=== PATIENT | male | born 2005 | race Two or more races ===

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

== ENCOUNTER 2023-03-10 16:58 | Emergency (ER) | payer OTHER ==
[~2023-03-10] VITALS: Ht 165.1 cm; Wt 57.6 kg
[2023-03-10 20:10] LABS: HEMOGLOBIN 13.9 g/dL (13-16.00); MEAN CELL VOLUME 86.7 fL (80.0-100.00); MEAN CORPUSCULAR HEMOGLOBIN 29.4 pg (27.00-32.0); MEAN CORPUSCULAR HGB CONC 33.9 g/dl (32.0-36.0); RED BLOOD COUNT 4.73 M/uL (4.00-6.00); RED CELL DISTRIBUTION WIDTH 13.4 % (11.5-14.5)
[2023-03-10 20:20] LABS: PLATELET COUNT 70 K/uL (150-450)
== END 2023-03-10 21:06 | disposition home or self-care (01) ==
LOC: EMR PED → ER 16:59 → EMR PED 16:59 → EDBD 16:59 → EMR PED 18:47
PROVIDERS: Emergency Medicine
DX: R50.9 Fever, unspecified (principal); Z20.822 Contact with and (suspected) exposure to COVID-19

== ENCOUNTER 2023-03-11 14:12 | Inpatient (IN) | payer OTHER ==
[~2023-03-11] VITALS: Ht 165.1 cm; Wt 58.2 kg
[2023-03-11 16:43] LABS: HEMATOCRIT 41.6 % (39.0-48.0); HEMOGLOBIN 14.1 g/dL (13-16.00); MEAN CELL VOLUME 87.6 fL (80.0-100.00); MEAN CORPUSCULAR HEMOGLOBIN 29.6 pg (27.00-32.0); MEAN CORPUSCULAR HGB CONC 33.8 g/dl (32.0-36.0); RED BLOOD COUNT 4.75 M/uL (4.00-6.00); RED CELL DISTRIBUTION WIDTH 13.6 % (11.5-14.5)
[2023-03-11 16:44] LABS: PLATELET COUNT 85 K/uL (150-450)
[2023-03-11 16:54] LABS: ALBUMIN 3.7 gm/dL (3.4-5.0); BILIRUBIN TOTAL 0.35 mg/dL (0.3-1.2); CALCIUM 8.6 mg/dL (8.5-10.1); CREATININE SERUM 0.76 mg/dL (0.70-1.30); GFR 132.13; GLOBULINA 3.4 G/DL (2.4-3.5); POTASSIUM 3.94 mEq/L (3.5-5.1); TOTAL PROTEIN 7.1 gm/dL (6.4-8.2)
[2023-03-11 20:46] LABS: INR 1.33; PROTHROMBIN TIME 13.7 SECONDS (9.0-11.5)
[2023-03-11 20:57] LABS: PARTIAL THROMBOPLASTIN TIME 38.5 SECONDS (22.0-34.0)
[2023-03-12 05:30] LABS: HEMATOCRIT 39.7 % (39.0-48.0); HEMOGLOBIN 13.4 g/dL (13-16.00); MEAN CELL VOLUME 87.2 fL (80.0-100.00); MEAN CORPUSCULAR HEMOGLOBIN 29.4 pg (27.00-32.0); MEAN CORPUSCULAR HGB CONC 33.7 g/dl (32.0-36.0); RED BLOOD COUNT 4.55 M/uL (4.00-6.00); RED CELL DISTRIBUTION WIDTH 13.2 % (11.5-14.5)
[2023-03-12 05:43] LABS: ALBUMIN 3.2 gm/dL (3.4-5.0); BILIRUBIN TOTAL 0.25 mg/dL (0.3-1.2); CALCIUM 7.9 mg/dL (8.5-10.1); CREATININE SERUM 0.73 mg/dL (0.70-1.30); GFR 138.41; GLOBULINA 2.4 G/DL (2.4-3.5); POTASSIUM 3.75 mEq/L (3.5-5.1); TOTAL PROTEIN 5.6 gm/dL (6.4-8.2)
[2023-03-12 06:07] LABS: PLATELET COUNT 58 K/uL (150-450)
[2023-03-13 07:04] LABS: HEMATOCRIT 43.4 % (39.0-48.0); MEAN CELL VOLUME 86.2 fL (80.0-100.00); MEAN CORPUSCULAR HEMOGLOBIN 29.9 pg (27.00-32.0); MEAN CORPUSCULAR HGB CONC 34.7 g/dl (32.0-36.0); RED BLOOD COUNT 5.03 M/uL (4.00-6.00); RED CELL DISTRIBUTION WIDTH 13.3 % (11.5-14.5)
[2023-03-13 07:19] LABS: PLATELET COUNT 33 K/uL (150-450)
[2023-03-13 13:57] LABS: HEMATOCRIT 45.3 % (39.0-48.0); HEMOGLOBIN 15.5 g/dL (13-16.00); MEAN CELL VOLUME 86.8 fL (80.0-100.00); MEAN CORPUSCULAR HEMOGLOBIN 29.8 pg (27.00-32.0); MEAN CORPUSCULAR HGB CONC 34.3 g/dl (32.0-36.0); RED BLOOD COUNT 5.21 M/uL (4.00-6.00); RED CELL DISTRIBUTION WIDTH 13.3 % (11.5-14.5)
[2023-03-13 14:34] LABS: PLATELET COUNT 26 K/uL (150-450)
[2023-03-14 07:10] LABS: INR 1.14; PROTHROMBIN TIME 11.9 SECONDS (9.0-11.5)
[2023-03-14 07:25] LABS: ALT/SGPT 1668 U/L (12-78); AST/SGOT 1487 U/L (15-37)
[2023-03-14 08:26] LABS: HEMOGLOBIN 15.5 g/dL (13-16.00); MEAN CELL VOLUME 87.3 fL (80.0-100.00); MEAN CORPUSCULAR HEMOGLOBIN 30.1 pg (27.00-32.0); MEAN CORPUSCULAR HGB CONC 34.4 g/dl (32.0-36.0); RED BLOOD COUNT 5.15 M/uL (4.00-6.00); RED CELL DISTRIBUTION WIDTH 13.1 % (11.5-14.5)
[2023-03-14 09:10] LABS: PLATELET COUNT 22 K/uL (150-450)
[2023-03-14 18:01] LABS: HEMATOCRIT 41.8 % (39.0-48.0); HEMOGLOBIN 14.3 g/dL (13-16.00); MEAN CELL VOLUME 85.8 fL (80.0-100.00); MEAN CORPUSCULAR HEMOGLOBIN 29.5 pg (27.00-32.0); MEAN CORPUSCULAR HGB CONC 34.3 g/dl (32.0-36.0); RED BLOOD COUNT 4.87 M/uL (4.00-6.00); RED CELL DISTRIBUTION WIDTH 13.5 % (11.5-14.5)
[2023-03-14 18:50] LABS: PLATELET COUNT 27 K/uL (150-450)
[2023-03-15 08:39] LABS: ALT/SGPT 1600 U/L (12-78); AST/SGOT 1179 U/L (15-37)
[2023-03-15 09:15] LABS: HEMATOCRIT 42.6 % (39.0-48.0); HEMOGLOBIN 14.4 g/dL (13-16.00); MEAN CELL VOLUME 87.1 fL (80.0-100.00); MEAN CORPUSCULAR HEMOGLOBIN 29.5 pg (27.00-32.0); MEAN CORPUSCULAR HGB CONC 33.9 g/dl (32.0-36.0); RED BLOOD COUNT 4.89 M/uL (4.00-6.00); RED CELL DISTRIBUTION WIDTH 13.2 % (11.5-14.5)
[2023-03-15 09:26] LABS: PLATELET COUNT 32 K/uL (150-450)
[2023-03-16 06:39] LABS: HEMATOCRIT 39.6 % (39.0-48.0); HEMOGLOBIN 13.7 g/dL (13-16.00); MEAN CELL VOLUME 87.1 fL (80.0-100.00); MEAN CORPUSCULAR HGB CONC 34.5 g/dl (32.0-36.0); RED BLOOD COUNT 4.55 M/uL (4.00-6.00); RED CELL DISTRIBUTION WIDTH 12.7 % (11.5-14.5)
[2023-03-16 07:57] LABS: PLATELET COUNT 58 K/uL (150-450)
[2023-03-17 06:05] LABS: HEMATOCRIT 40.1 % (39.0-48.0); HEMOGLOBIN 13.7 g/dL (13-16.00); MEAN CELL VOLUME 86.1 fL (80.0-100.00); MEAN CORPUSCULAR HEMOGLOBIN 29.4 pg (27.00-32.0); MEAN CORPUSCULAR HGB CONC 34.2 g/dl (32.0-36.0); RED BLOOD COUNT 4.65 M/uL (4.00-6.00); RED CELL DISTRIBUTION WIDTH 13.2 % (11.5-14.5)
[2023-03-17 06:16] LABS: PLATELET COUNT 104 K/uL (150-450)
[2023-03-17 06:40] LABS: INR 1.13; PARTIAL THROMBOPLASTIN TIME 28.9 SECONDS (22.0-34.0); PROTHROMBIN TIME 11.8 SECONDS (9.0-11.5)
[2023-03-17 06:57] LABS: ALBUMIN 3.2 gm/dL (3.4-5.0); BILIRUBIN TOTAL 0.55 mg/dL (0.3-1.2); CALCIUM 8.9 mg/dL (8.5-10.1); CREATININE SERUM 0.69 mg/dL (0.70-1.30); GFR 147.71; GLOBULINA 3.5 G/DL (2.4-3.5); POTASSIUM 3.89 mEq/L (3.5-5.1); TOTAL PROTEIN 6.7 gm/dL (6.4-8.2)
[2023-03-18 05:43] LABS: HEPATITIS A IGM Negative (Negative); HEPATITIS B CORE IGM Negative (Negative); HEPATITIS C VIRUS ANTIBODY Non Reactive (Non Reactive)
== END 2023-03-17 08:54 | disposition home or self-care (01) | DRG 866 ==
LOC: ER 14:12 → EMR PED 14:26 → SEC-K 16:44 → PED 16:44
PROVIDERS: Emergency Medicine Pediatric Emergency Medicine; Internal Medicine Hematology & Oncology; Pediatrics; ADMIT Emergency Medicine; ATTEND Emergency Medicine
DX: A91 Dengue hemorrhagic fever (principal); D69.6 Thrombocytopenia, unspecified; K81.9 Cholecystitis, unspecified; R73.9 Hyperglycemia, unspecified

== ENCOUNTER 2024-07-01 17:15 | Emergency (ER) | payer OTHER ==
[~2024-07-01] VITALS: Ht 165.1 cm; Wt 63.5 kg
[2024-07-01] MEDS ORDERED: DEXAMETHASONE SODIUM PHOSPHATE 4 MG/ML VIAL IM STA (19:57)
== END 2024-07-01 20:39 | disposition home or self-care (01) ==
LOC: ER 17:37 → EMR PED 17:37
DX: M25.539 Pain in unspecified wrist (principal)